=== PATIENT | male | born 1965 | race Caucasian/White ===

== ENCOUNTER 2016-08-13 23:05 | Emergency (ER) | payer OTHER | END 2016-08-14 01:00 | disposition home or self-care (01) | LOC: FER 23:05 | DX: S39.012A Strain of muscle, fascia and tendon of lower back, initial encounter (principal); M54.9 Dorsalgia, unspecified; G89.29 Other chronic pain; I25.2 Old myocardial infarction; I11.9 Hypertensive heart disease without heart failure; J44.9 Chronic obstructive pulmonary disease, unspecified; Z79.899 Other long term (current) drug therapy; Z88.8 Allergy status to other drugs, medicaments and biological substances; X50.1XXA Overexertion from prolonged static or awkward postures, initial encounter; Y93.H2 Activity, gardening and landscaping | CPT/HCPCS: 72110; J1100; J1885 ==

== ENCOUNTER 2021-06-13 19:54 | Emergency (ER) | payer OTHER ==
[~2021-06-13 19:54] MED LIST: ASPIRIN EC81 MG PO; CENTRUM SILVER1 EAC5 PO; KRILL OIL 3501 EACH PO; LIPITOR40 MG PO; PLAVIX75 MG PO; PRILOSEC20 MG PO; TOPROL XL 50 MG50 MG PO; VOLTAREN **OUT75 MG PO; ZESTRIL5 MG PO
[2021-06-13 20:25] LABS: BASOPHIL 0.8 % (0-2); EOSINOPHIL 2.1 % (0-5); HCT 46.4 % (42.0-52.0); LYMPHOCYTE 35.4 % (15-48); MCH 30.1 pg (25.0-31.0); MCHC 34.5 g/dL (32.0-36.0); MCV 87.4 fL (78.0-100.0); MONOCYTE 8.9 % (0-12); MPV 8.6 fL (6.0-9.5); NEUTROPHIL 52.4 % (41-80); NRBC 0; PLT 257 K/uL (150-400); RBC 5.31 M/uL (4.70-6.00); RDW 13.3 % (11.5-14.0); WBC 11.5 K/uL (4.0-10.5)
[2021-06-13 20:46] LABS: BILIRUBIN - TOTAL 0.7 mg/dL (0.2-1.0); GLOBULIN (CALCULATION) 3.2 g/dL; MAGNESIUM 1.8 mg/dL (1.8-2.4); PHOSPHORUS 3.7 mg/dL (2.6-4.7); POTASSIUM 3.4 mmol/L (3.5-5.1); TOTAL PROTEIN 7.2 g/dL (6.4-8.2)
== END 2021-06-14 00:06 | disposition home or self-care (01) ==
LOC: FER 19:54
PROVIDERS: Emergency Medicine
DX: R07.9 Chest pain, unspecified (principal); I10 Essential (primary) hypertension; E11.9 Type 2 diabetes mellitus without complications; J45.909 Unspecified asthma, uncomplicated; I25.10 Atherosclerotic heart disease of native coronary artery without angina pectoris; Z79.02 Long term (current) use of antithrombotics/antiplatelets; Z79.84 Long term (current) use of oral hypoglycemic drugs; Z79.82 Long term (current) use of aspirin; Z79.899 Other long term (current) drug therapy
CPT/HCPCS: 36415; 71045; 80053; 83735; 83880; 84100; 84484; 85025; 85379; 93005